=== PATIENT | female | born 1985 | race Caucasian/White ===

== ENCOUNTER 2019-01-01 08:57 | Emergency (ER) | payer BC, MEDICAID ==
[2019-01-01 09:28] VITALS: BP 115/65
--- NOTE | 2019-01-01 10:13 | UC ---
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 no nausea, sob or sweating. no fever or chills. no changes with exertion or deep breaths. no hx htn, dm, hyperlipidemeia or fmh premature CAD. - History of Current Complaint Chief Complaint: UCRespiratory Stated Complaint: INHALATION INJURY Time Seen by Provider: 01/01/19 10:07 Hx Obtained From: Patient Hx Last Menstrual Period: prior to child 4 months ago Timing: Constant Pain Intensity: 6 Aggravating: nothing Alleviating: nothing Associated Signs & Symptoms: Negative: Cough, Chest Pain, Dizziness, Diaphoresis , Fever, SOB, Wheezing - Allergy/Home Medications Allergies/Adverse Reactions: Allergies Allergy/AdvReac Type Severity Reaction Status Date / Time No Known Allergies Allergy Verified 01/01/19 09:29 Home Medications: Home Medications Iron Ps Complex/B12/Folic Acid [Poly-Iron 150 Forte] 1 cap PO DAILY 01/01/19 [ History Confirmed 01/01/19] PMH/Surg Hx/FS Hx/Imm Hx - Additional Past Medical History Additional PMH: r/o [place]'s with hematology - Surgical History Surgical History: Yes Surgery Procedure, Year, and Place: , hysterectomy 07/2018 - Family History Known Family History: Negative: Cardiac Disease - Social History Lives: With Family Alcohol Use: None Substance Use Type: None Smoking Status (MU): Never Smoked Tobacco - Immunization History Most Recent Influenza Vaccination: 2012 Vaccination Up to Date: Yes Review of Systems All Other Systems Reviewed And Are Negative: Yes Constitutional: Negative: Fever, Chills Respiratory: Negative: Shortness Of Breath, Cough Cardiovascular: Positive: Chest Pain - "burning". Negative: Palpitations Gastrointestinal: Negative: Vomiting, Nausea Physical Exam Triage Information Reviewed: Yes Appearance: Well-Appearing Vital Signs: Initial Vital Signs Temp 98.4 F 01/01/19 09:24 Pulse 84 01/01/19 09:24 Resp 16 01/01/19 09:24 BP 115/65 01/01/19 09:24 Pulse Ox 100 01/01/19 09:24 Vital Signs Reviewed: Yes Eyes: Positive: Conjunctiva Clear ENT: Positive: Pharynx normal, TMs normal. Negative: Nasal congestion, Nasal drainage Neck: Positive: Supple, Nontender, No Lymphadenopathy Respiratory: Positive: Chest non-tender, Lungs clear, Normal breath sounds, No respiratory distress Cardiovascular: Positive: RRR, No Murmur Abdomen Description: Positive: Nontender Musculoskeletal: Positive: ROM Intact, No Edema, Other: - No calf cords or tenderness Neurological: Positive: Alert Psychological: Positive: Age Appropriate Behavior Skin Exam: Normal Diagnostics - Radiology No standard instances Radiology Interpretation Completed By: Radiologist - IMPRESSION: NO EVIDENCE FOR ACTIVE CARDIOPULMONARY DISEASE. - EKG Cardiac Rate: NL Cardiac Rhythm: Sinus: Normal Ectopy: None ST Segment: Normal Re-Evaluation - Re-Evaluation First Eval Re-Evaluation Time: 11:04 Change: Improved - pt states her breathing feels better and there is less burning. I am able to detect improved areation. Course/Dx - Differential Dx - Multi-Symptom Differential Diagnoses: Other - CXR=NAD. EKG=UNREMARKABLE AND NO RISK FOR PREMATURE CAD. S/S'S BEGAN AFTER BIRD DROPPING INHALATION THUS I AM GOING TO COVER WITH DOXYCYCLINE PLUS SHE GOT SOME RELIEF WITH ALBUTEROL SO I WILL WRITE EOT THAT IN AN MDI. NEED FOR CLOSE F/U ADVISED. - Diagnoses Provider Diagnosis: Bronchospasm Discharge - Sign-Out/Discharge Documenting (check all that apply): Patient Departure All imaging exams completed and their final reports reviewed: No Studies - Discharge Plan Condition: Stable Disposition: HOME Prescriptions: Albuterol HFA INHALER* [Ventolin HFA Inhaler*] 2 puff INH Q6H #1 mdi DOXYcycline CAP(*) [DOXYcycline 100MG CAP(*)] 100 mg PO BID 10 Days #20 cap Patient Education Materials: Bronchospasm (ED) Referrals: Jim Ulrich MD [Primary Care Provider] - 5 Days Additional Instructions: DUE TO THE BIRD DROPPING EXPOSURE AND CURRENT SIGNS/SYMPTOMS, YOU ARE BEING TREATED WITH DOXYCYCLINE. - Billing Disposition and Condition Condition: STABLE Disposition: Home - Attestation Statements Provider Attestation: Per institutional requirements, I have reviewed the chart, however, I was not consulted specifically or made aware of this patient by the midlevel provider. I did not personally evaluate, interact with , or disposition this patient. Addendum entered and electronically signed by Petty Munoz PA 01/01/19 11:12 : Addendum Addendum: EARLY PSITTACOSIS IS IN THE DIFFERENTIAL
[2019-01-01] MEDS ORDERED: Albuterol 2.5 MG/3 ML NEB.SOL* (0.083%) INH ONE (10:14)
== END 2019-01-01 11:16 | disposition home or self-care (01) ==
LOC: UCCORT 08:57
DX: J98.01 Acute bronchospasm (principal)
CPT/HCPCS: 71046; 93005; 99212; G0463